=== PATIENT | female | born 1985 | race Caucasian/White ===

== ENCOUNTER 2022-01-31 07:41 | Emergency (ER) | payer OTHER ==
[~2022-01-31] VITALS: Ht 160 cm; Wt 64.1 kg
[2022-01-31 07:46] VITALS: BP 117/77
--- NOTE | 2022-01-31 07:54 | NUR ---
Pt ambulated to bed 08.
[2022-01-31] MEDS ORDERED: NACL 0.9% 1,000 ML IV ONE (08:55)
[2022-01-31] MEDS ORDERED: HALOPERIDOL IM 5 MG/ML VIAL IM ONE (08:55)
--- NOTE | 2022-01-31 09:15 | NUR ---
36/F PRESENTS TO ED WITH C/O ABDOMINAL PAIN, NAUSEA AND VOMITING X1 MONTH. PATIENT REPORTS SYMPTOMS ARE INTERMITTENT AND WORSEN WHEN SHE "SMELLS SOMETHING." PATIENT REPORTS GOING TO URGENT CARE 2 DAYS AGO FOR SYMPTOMS AND WAS PRESCRIBED ABX FOR A "BACTERIA IN HER STOMACH." PATIENT STATING SHE HAS NOT FOUND RELIEF, DENIES DIARRHEA, CONSTIPATION, FEVERS, CHILLS OR URINARY SYMPTOMS.
[2022-01-31 09:30] LABS: BASOPHILS % (AUTO) 0.4 % (0.0-2.0); EOSINOPHILS # (AUTO) 0.1 K/uL (0-0.4); EOSINOPHILS % (AUTO) 0.8 % (0.0-4.0); HEMATOCRIT 37.4 % (36-48); HEMOGLOBIN 13.2 g/dL (12.0-16.0); LYMPHOCYTES # (AUTO) 1.2 K/uL (2.5-16.5); LYMPHOCYTES % (AUTO) 16.3 % (20.5-51.1); MEAN CORPUSCULAR HEMOGLOBIN 30 pg (27-31); MEAN CORPUSCULAR HGB CONC 35 g/dL (33-37); MEAN CORPUSCULAR VOLUME 84.8 fL (80-94); MONOCYTES # (AUTO) 0.5 K/uL (0.8-1.0); MONOCYTES % (AUTO) 6.6 % (1.7-9.3); NEUTROPHILS # (AUTO) 5.5 K/uL (1.8-7.7); NEUTROPHILS % (AUTO) 75.9 % (42.2-75.2); PLATELET COUNT (AUTO) 396 K/uL (140-450); RED CELL DISTRIBUTION WIDTH 13.3 % (11.6-13.7); WHITE BLOOD COUNT (AUTO) 7.2 K/uL (4.8-10.8)
[2022-01-31 09:53] LABS: ANION GAP 15.1 (8-16); CREATININE 0.8 mg/dL (0.6-1.3); POTASSIUM 3.1 mmol/L (3.5-5.1); TOTAL BILIRUBIN 1.2 mg/dL (0.0-1.0)
--- NOTE | 2022-01-31 11:20 | NUR ---
IV removed, catheter intact and site benign. Applied folded 4x4 gauze and tape to stop bleeding.
[2022-01-31 11:21] VITALS: BP 112/63
--- NOTE | 2022-01-31 11:21 | NUR ---
Patient discharged with v/s stable. Written and verbal after care instructions ABOUT ABDOMINAL PAIN AND CYCLIC VOMITING SYNDROME given and explained. Patient verbalized understanding. Ambulatory with steady gait. All questions addressed prior to discharge. Advised to follow up with PMD.
== END 2022-01-31 11:21 | disposition home or self-care (01) ==
LOC: MED 07:41
DX: R10.33 Periumbilical pain (principal)
CPT/HCPCS: 36415; 80053; 81002; 81025; 83690; 84702; 85025; 96360; 96372; 99283; J1630; J7030